=== PATIENT | male | born 1955 | race Two or more races ===

== ENCOUNTER 2021-02-06 11:30 | Inpatient (IN) | payer OTHER ==
[~2021-02-06] VITALS: Ht 172.7 cm; Wt 108.0 kg
[2021-02-06] MEDS ORDERED: SYNTH PO (14:20)
[2021-02-06] MEDS ORDERED: CARDIZEM LA240 MG PO (14:21)
[2021-02-06] MEDS ORDERED: COZAAR100 MG PO (14:21)
[2021-02-06] MEDS ORDERED: SINGULAIR10 MG PO (14:21)
[2021-02-10] MEDS ORDERED: MEDROLPACK PO (11:53)
[2021-02-10] MEDS ORDERED: COLACE100 MG PO (11:53)
[2021-02-10] MEDS ORDERED: PERCOCET 5-3251 EACH PO (11:53)
[2021-02-10] MEDS ORDERED: DIAZEPAM5 MG PO (11:53)
[2021-02-10] MEDS ORDERED: AMOX-CLAV 875-1 EACH PO (11:53)
[2021-02-10] MEDS ORDERED: NEURONTIN800 MG PO (14:41)
== END 2021-02-11 18:17 | disposition home or self-care (01) | DRG 455 ==
LOC: O/R 02-10 06:19 → PED 02-10 06:19 → SURH 02-10 11:30 → PED 02-10 15:33
PROVIDERS: ADMIT Orthopaedic Surgery Orthopaedic Surgery of the Spine; ATTEND Orthopaedic Surgery Orthopaedic Surgery of the Spine
PROC: 0SG10J1 Fusion of 2 or more Lumbar Vertebral Joints with Synthetic Substitute, Posterior Approach, Posterior Column, Open Approach (ICD-10-PCS; 2021-02-10)
PROC: 0ST20ZZ Resection of Lumbar Vertebral Disc, Open Approach (ICD-10-PCS; 2021-02-10)
PROC: 07DR3ZZ Extraction of Iliac Bone Marrow, Percutaneous Approach (ICD-10-PCS; 2021-02-10)
PROC: XRGC0R7 Fusion of 2 or more Lumbar Vertebral Joints using Custom-Made Anatomically Designed Interbody Fusion Device, Open Approach, New Technology Group 7 (ICD-10-PCS; principal; 2021-02-10 14:00)
DX: M48.062 Spinal stenosis, lumbar region with neurogenic claudication (principal); M51.36 Other intervertebral disc degeneration, lumbar region; M41.86 Other forms of scoliosis, lumbar region; M96.1 Postlaminectomy syndrome, not elsewhere classified

== ENCOUNTER 2024-05-04 09:45 | Inpatient (IN) | payer OTHER ==
[~2024-05-04] VITALS: Ht 172.7 cm; Wt 98.9 kg
[~2024-05-04 09:45] MED LIST: AMOX-CLAV 875-1 EACH PO; CARDIZEM LA240 MG PO; COLACE100 MG PO; COZAAR100 MG PO; DIAZEPAM5 MG PO; MEDROLPACK PO; NEURONTIN800 MG PO; NORVASC10 MG PO; PERCOCET 5-3251 EACH PO; SINGULAIR10 MG PO; SYNTH PO; SYNTHROID200 MCG PO
[2024-05-08] MEDS ORDERED: HEMOSTATIC MATRIX WITH THROMBIN KIT TOP ONE (10:57)
[2024-05-08] MEDS ORDERED: VANCOMYCIN HCL 1,000 MG VIAL ONE (10:58)
[2024-05-08] MEDS ORDERED: METHYLPREDNISOLONE SOD SUCC 125 MG VIAL ONE (11:03)
[2024-05-08] MEDS ORDERED: CEFAZOLIN SODIUM 1,000 MG VIAL ONE (11:04)
[2024-05-08] MEDS ORDERED: MEDROLPACK PO (11:21)
[2024-05-08] MEDS ORDERED: PERCOCET 5-3251 EACH PO (11:21)
[2024-05-08] MEDS ORDERED: COLACE100 MG PO (11:22)
[2024-05-08] MEDS ORDERED: AMOX-CLAV 875-1 EACH PO (11:22)
[2024-05-08] MEDS ORDERED: NEURONTIN800 MG PO (11:23)
[2024-05-08] MEDS ORDERED: ZOFRAN8 MG PO (11:23)
[2024-05-08] MEDS ORDERED: GABAPENTIN100 M2 PO (11:23)
[2024-05-08] MEDS ORDERED: IOVERSOL 320 MG/ML - 50 ML VIAL IV ONE (11:28)
[2024-05-08] MEDS ORDERED: 0.9 % SODIUM CHLORIDE 1,000 ML IV SCH (11:45)
[2024-05-08] MEDS ORDERED: PROMETHAZINE HCL 50 MG/ML AMPUL IM PRN (11:45)
[2024-05-08] MEDS ORDERED: ENALAPRILAT DIHYDRATE 1.25 MG/ML VIAL IV PRN (11:45)
[2024-05-08] MEDS ORDERED: MORPHINE SULFATE 4 MG,MORPHINE SULFATE 2 MG IV SCH (12:00)
[2024-05-08] MEDS ORDERED: METHYLPREDNISOLONE ACETATE 80 MG/ML VIAL IM ONE ×2 (12:45)
[2024-05-08] MEDS ORDERED: MORPHINE SULFATE 4 MG/ML VIAL IV ONE ×2 (14:15→16:00)
[2024-05-08] MEDS ORDERED: ONDANSETRON HCL 2 MG/ML VIAL ONE (14:37)
[2024-05-08] MEDS ORDERED: DOCUSATE SODIUM 100MG CAP PO SCH (17:00)
[2024-05-08] MEDS ORDERED: CEFAZOLIN SODIUM 1,000 MG in 0.9 % SODIUM CHLORIDE 50 ML IV SCH (17:00)
[2024-05-08] MEDS ORDERED: MONTELUKAST SODIUM 10 MG TABLET PO SCH (17:00)
[2024-05-08] MEDS ORDERED: METHYLPREDNISOLONE SOD SUCC 125 MG VIAL IV SCH (17:00)
[2024-05-08] MEDS ORDERED: ALBUTEROL SULFATE 3 ML/2.5 MG AMPUL.NEB IH SCH (17:00)
[2024-05-08] MEDS ORDERED: FAMOtidine 20 MG TABLET PO SCH (17:00)
[2024-05-08 17:29] VITALS: BP 131/81; O2SAT 100
[2024-05-08] MEDS ORDERED: ACETAMINOPHEN 500 MG GEL..CAP PO SCH (20:00)
[2024-05-08] MEDS ORDERED: VANCOMYCIN HCL 1,000 MG VIAL IV SCH (21:00)
[2024-05-08] MEDS ORDERED: GABAPENTIN 800 MG TABLET PO SCH (21:00)
[2024-05-09] VITALS: BP 145/74; O2SAT 100
[2024-05-09] MEDS ORDERED: SODIUM CHLORIDE 0.45 % 1,000 ML IV SCH
[2024-05-09] MEDS ORDERED: CEFAZOLIN SODIUM 1,000 MG VIAL ONE (00:31)
[2024-05-09 04:30] VITALS: BP 137/78; O2SAT 98
[2024-05-09] MEDS ORDERED: LEVOTHYROXINE SODIUM 100 MCG TABLET PO SCH (06:00)
[2024-05-09] MEDS ORDERED: OxyCODONE HCL 5 MG TABLET (ROXICODONE) PO PRN (06:01)
[2024-05-09 06:20] LABS: HEMATOCRIT 36.6 % (39.0-48.0); HEMOGLOBIN 12.5 g/dL (13-16.00); MEAN CELL VOLUME 87.3 fL (80.0-100.00); MEAN CORPUSCULAR HEMOGLOBIN 29.8 pg (27.00-32.0); MEAN CORPUSCULAR HGB CONC 34.1 g/dl (32.0-36.0); PLATELET COUNT 191 K/uL (150-450); RED BLOOD COUNT 4.19 M/uL (4.00-6.00); RED CELL DISTRIBUTION WIDTH 13.5 % (11.5-14.5)
[2024-05-09 06:46] LABS: CALCIUM 8.3 mg/dL (8.5-10.1); CREATININE SERUM 0.96 mg/dL (0.70-1.30); GFR 77.89; POTASSIUM 4.1 mEq/L (3.5-5.1)
[2024-05-09 08:08] VITALS: BP 131/73; O2SAT 98
[2024-05-09] MEDS ORDERED: TAMSULOSIN HCL 0.4 MG CAP PO SCH (09:00)
[2024-05-09] MEDS ORDERED: LOSARTAN POTASSIUM 100 MG TABLET PO SCH (09:00)
[2024-05-09] MEDS ORDERED: ENOXAPARIN SODIUM 40 MG/0.4 ML SYRINGE SUBCUTANEO SCH (09:00)
[2024-05-09 12:35] VITALS: BP 129/67; O2SAT 99
[2024-05-09 17:22] VITALS: BP 130/71; O2SAT 99
[2024-05-09 23:30] VITALS: BP 121/72; O2SAT 98
[2024-05-10] MEDS ORDERED: SODIUM CL 0.9% 50 ML IV.SOLN IV ONE (01:00)
[2024-05-10 04:30] VITALS: BP 113/71; O2SAT 97
[2024-05-10] MEDS ORDERED: LEVOTHYROXINE SODIUM 200 MCG TABLET PO SCH (06:00)
[2024-05-10 08:53] VITALS: BP 135/77; O2SAT 98
== END 2024-05-10 14:18 | DRG 402 ==
LOC: SURH 05-08 09:45 → PED 05-08 10:37 → O/R 05-08 10:37 → SURH 05-08 13:00 → PED 05-08 14:46
PROVIDERS: ADMIT Orthopaedic Surgery Orthopaedic Surgery of the Spine; ATTEND Orthopaedic Surgery Orthopaedic Surgery of the Spine
PROC: 0SG30K1 Fusion of Lumbosacral Joint with Nonautologous Tissue Substitute, Posterior Approach, Posterior Column, Open Approach (ICD-10-PCS; 2024-05-08)
PROC: 0QB30ZZ Excision of Left Pelvic Bone, Open Approach (ICD-10-PCS; 2024-05-08)
PROC: 0ST40ZZ Resection of Lumbosacral Disc, Open Approach (ICD-10-PCS; 2024-05-08)
PROC: 07DR0ZZ Extraction of Iliac Bone Marrow, Open Approach (ICD-10-PCS; 2024-05-08)
PROC: 4A1104G Monitoring of Peripheral Nervous Electrical Activity, Intraoperative, Open Approach (ICD-10-PCS; 2024-05-08)
PROC: XRGD0R7 Fusion of Lumbosacral Joint using Custom-Made Anatomically Designed Interbody Fusion Device, Open Approach, New Technology Group 7 (ICD-10-PCS; principal; 2024-05-08 13:00)
PROC: 3E0F7GC Introduction of Other Therapeutic Substance into Respiratory Tract, Via Natural or Artificial Opening (ICD-10-PCS; 2024-05-09)
DX: M51.370 Other intervertebral disc degeneration, lumbosacral region with discogenic back pain only (principal); M48.07 Spinal stenosis, lumbosacral region; M54.17 Radiculopathy, lumbosacral region; M47.897 Other spondylosis, lumbosacral region; I10 Essential (primary) hypertension; E03.9 Hypothyroidism, unspecified; G47.33 Obstructive sleep apnea (adult) (pediatric); J45.998 Other asthma; I89.0 Lymphedema, not elsewhere classified

== ENCOUNTER 2024-06-04 18:29 | Emergency (ER) | payer OTHER ==
[~2024-06-04] VITALS: Ht 172.7 cm; Wt 97.5 kg
[~2024-06-04 18:29] MED LIST changes: +GABAPENTIN100 M2 PO; +ZOFRAN8 MG PO
[2024-06-04] MEDS ORDERED: XARELTO10 M1 PO (18:43)
[2024-06-04 19:59] LABS: HEMATOCRIT 38.3 % (39.0-48.0); HEMOGLOBIN 12.7 g/dL (13-16.00); MEAN CORPUSCULAR HEMOGLOBIN 29.9 pg (27.00-32.0); MEAN CORPUSCULAR HGB CONC 33.2 g/dl (32.0-36.0); PLATELET COUNT 207 K/uL (150-450); RED BLOOD COUNT 4.25 M/uL (4.00-6.00); RED CELL DISTRIBUTION WIDTH 14.5 % (11.5-14.5)
[2024-06-04 20:13] LABS: CALCIUM 8.6 mg/dL (8.5-10.1); GFR 74.31; POTASSIUM 4.01 mEq/L (3.5-5.1)
[2024-06-04 23:04] LABS: PH,URINE 6.5 (5.0-8.0); URINE APPEARANCE Clear; URINE BILIRRUBIN Negative (NEGATIVE); URINE BLOOD Negative; URINE COLOR Yellow; URINE GLUCOSE Negative (NEGATIVE); URINE KETONE Negative (NEGATIVE); URINE LEUKOCYTE Negative; URINE NITRATE Negative; URINE PROTEIN Negative (NEGATIVE); URINE UROBILINOGEN 0.2 E.U./dl
[2024-06-04 23:13] LABS: URINE WBC 2.5 uL (0.0-23.2)
[2024-06-04 23:16] LABS: URINE BACTERIA 1.2 uL (0.0-1933); URINE EPITHELIAL CELLS 1.2 uL (0.0-38.8)
[2024-06-05] MEDS ORDERED: GABAPENTIN 800 MG TABLET PO STA (00:16)
[2024-06-05] MEDS ORDERED: KETOROLAC TROMETHAMINE 30 MG VIAL IV STA (06:52)
[2024-06-05] MEDS ORDERED: ORPHENADRINE CITRATE 30 MG/ML AMPUL IV STA (07:09)
== END 2024-06-05 15:05 | disposition home or self-care (01) ==
LOC: ER 18:32
PROVIDERS: Emergency Medicine
DX: M79.605 Pain in left leg (principal); T84.84XA Pain due to internal orthopedic prosthetic devices, implants and grafts, initial encounter; E03.8 Other specified hypothyroidism; I10 Essential (primary) hypertension; I73.89 Other specified peripheral vascular diseases; Z98.890 Other specified postprocedural states
CPT/HCPCS: 36415; 72131; 93926; 96365; 99284; J2360

== ENCOUNTER 2025-02-27 09:51 | Outpatient (CLI) | payer OTHER ==
[~2025-02-27 09:51] MED LIST changes: +XARELTO10 M1 PO
== END 2025-02-27 10:03 | disposition home or self-care (01) ==
LOC: TOM 09:51
PROVIDERS: ATTEND Student in an Organized Health Care Education/Training Program
DX: K57.30 Diverticulosis of large intestine without perforation or abscess without bleeding (principal); K64.4 Residual hemorrhoidal skin tags